=== PATIENT | female | born 1965 | race Caucasian/White ===

== ENCOUNTER → 2017-01-28 | Outpatient (CLI) | payer OTHER ==
[~2017-01-28] MED LIST: ESZO2TAB34 PO; LEVO50TA PO; MIRA25TA PO; MIRALAX PO; TESTOSTERONE PO; TYLENOL PO
== END | disposition home or self-care (01) ==
LOC: RAD 08:45
PROVIDERS: ATTEND Nurse Practitioner Family
DX: N28.1 Cyst of kidney, acquired (principal)
CPT/HCPCS: 76700

== ENCOUNTER → 2017-09-08 | Outpatient (CLI) | payer OTHER ==
[~2017-09-08] MED LIST changes: +ESZO2TAB22 PO; -ESZO2TAB34 PO
== END | disposition home or self-care (01) ==
LOC: CFH 09:46
PROVIDERS: ATTEND Radiology Radiation Oncology
DX: Z12.31 Encounter for screening mammogram for malignant neoplasm of breast (principal); Z85.3 Personal history of malignant neoplasm of breast
CPT/HCPCS: 77063; G0202

== ENCOUNTER 2017-11-28 05:39 | Day surgery (SDC) | payer OTHER ==
[~2017-11-28] VITALS: Ht 152.4 cm; Wt 53.0 kg
[2017-11-28] MEDS ORDERED: SODIUM BICARBONATE 1 MEQ/ML, 50ML VIAL ONE (06:02)
[2017-11-28] MEDS ORDERED: LIDOCAINE 1%, 20ML ONE ×2 (06:02→07:47)
[2017-11-28] MEDS ORDERED: BUPIVACAINE/PF 0.25% ONE ×2 (06:02→07:47)
[2017-11-28] MEDS ORDERED: EPINEPHRINE 1 MG/ML, 1ML ONE (06:02)
[2017-11-28 06:03] VITALS: BP 115/56
[2017-11-28] MEDS ORDERED: LACTATED RINGERS 1,000 ML IV SCH ×2 (06:06→08:02)
[2017-11-28] MEDS ORDERED: MIDAZOLAM 1 MG/ML, 2ML ONE (06:13)
[2017-11-28] MEDS ORDERED: FENTANYL PF 100 MCG/2ML ONE (06:14)
[2017-11-28] MEDS ORDERED: SODIUM CHLORIDE 0.9% PF 10ML ONE (06:20)
[2017-11-28] MEDS ORDERED: CEFAZOLIN 1,000 MG ONE ×2 (06:20)
[2017-11-28] MEDS ORDERED: ZOLP12.52 PO (06:26)
[2017-11-28] MEDS ORDERED: HYDROmorphone 1 MG/ML, 1ML IV PRN (07:00)
[2017-11-28] MEDS ORDERED: PROMETHAZINE 12.5 MG SUPP PR PRN (07:00)
[2017-11-28] MEDS ORDERED: ONDANSETRON 2MG/ML, 2ML IVPush PRN ×2 (07:00→08:30)
[2017-11-28] MEDS ORDERED: FENTANYL PF 100 MCG/2ML IV PRN (07:00)
[2017-11-28] MEDS ORDERED: PROPOFOL 10 MG/ML, 20ML ONE (07:11)
[2017-11-28] MEDS ORDERED: ONDANSETRON 2MG/ML, 2ML ONE (08:24)
[2017-11-28] MEDS ORDERED: IBUPROFEN 600 MG TABLET PO PRN (08:30)
== END 2017-11-28 10:25 ==
LOC: OUT 05:39
PROVIDERS: ATTEND Obstetrics & Gynecology Female Pelvic Medicine and Reconstructive Surgery
DX: N39.3 Stress incontinence (female) (male) (principal); N81.10 Cystocele, unspecified; Z98.890 Other specified postprocedural states; Z90.710 Acquired absence of both cervix and uterus
CPT/HCPCS: 57240; 64561; 64590; 72100; C1767; C1776; C1778; C1883; J0171; J0690; J2250; J2405; J2704; J3010; J3490; J7120

== ENCOUNTER 2017-12-05 05:28 | Day surgery (SDC) | payer OTHER ==
[~2017-12-05] VITALS: Ht 152.4 cm; Wt 56.0 kg
[~2017-12-05 05:28] MED LIST changes: +ZOLP12.52 PO
[2017-12-05] MEDS ORDERED: LACTATED RINGERS 1,000 ML IV SCH ×2 (06:06→08:34)
[2017-12-05 06:10] VITALS: BP 108/71
[2017-12-05] MEDS ORDERED: LIDOCAINE GEL 2%, 5ML ONE (06:46)
[2017-12-05] MEDS ORDERED: BACITRACIN 50,000 UNIT ONE (06:49)
[2017-12-05] MEDS ORDERED: EPINEPHRINE 1 MG/ML, 1ML ONE (06:49)
[2017-12-05] MEDS ORDERED: GABAPENTIN 300 MG CAPSULE PO ONE (06:49)
[2017-12-05] MEDS ORDERED: BUPIVACAINE/PF 0.5% ONE (06:49)
[2017-12-05] MEDS ORDERED: BUPIVACAINE/PF 0.25% ONE ×2 (06:50→07:54)
[2017-12-05] MEDS ORDERED: ESTROGENS CONJUGATED VAG CRM 0.625MG/1G, 30GM ONE (06:50)
[2017-12-05] MEDS ORDERED: FENTANYL PF 100 MCG/2ML ONE ×2 (06:50→08:53)
[2017-12-05] MEDS ORDERED: GENTAMICIN 80 MG/2 ML ONE (06:50)
[2017-12-05] MEDS ORDERED: MIDAZOLAM 1 MG/ML, 2ML ONE (06:50)
[2017-12-05] MEDS ORDERED: THROMBIN 5,000 UNIT VIAL TP ONE ×2 (06:51→08:09)
[2017-12-05] MEDS ORDERED: LIDOCAINE 1%, 20ML ONE (06:51)
[2017-12-05] MEDS ORDERED: FLUORESCEIN SODIUM 500 MG/5 ML ONE (06:51)
[2017-12-05] MEDS ORDERED: VANCOMYCIN 500 MG ONE (06:51)
[2017-12-05] MEDS ORDERED: PROPOFOL 50 ML ONE (06:54)
[2017-12-05] MEDS ORDERED: ACETAMINOPHEN 500 MG TABLET ONE (06:55)
[2017-12-05] MEDS ORDERED: SCOPOLAMINE PATCH, 1.5MG PATCH.TD72 TD ONE (06:55)
[2017-12-05] MEDS ORDERED: GABAPENTIN 300 MG CAPSULE ONE (06:55)
[2017-12-05] MEDS ORDERED: SCOPOLAMINE PATCH, 1.5MG PATCH.TD72 TD SCH (07:00)
[2017-12-05] MEDS ORDERED: ACETAMINOPHEN 500 MG TABLET PO ONE (07:00)
[2017-12-05] MEDS ORDERED: SUCCINYLCHOLINE 20 MG/ML, 10ML ONE (07:04)
[2017-12-05] MEDS ORDERED: ROCURONIUM 10 MG/ML,10ML ONE (07:04)
[2017-12-05] MEDS ORDERED: EPHEDRINE 50 MG/ML, 1ML ONE ×2 (07:49)
[2017-12-05] MEDS ORDERED: PROMETHAZINE 25 MG/ML, 1ML IV PRN ×2 (08:00→09:30)
[2017-12-05] MEDS ORDERED: DIAZEPAM 5 MG/ML, 2ML IVPush PRN (08:00)
[2017-12-05] MEDS ORDERED: PROMETHAZINE 12.5 MG SUPP PR PRN (08:00)
[2017-12-05] MEDS ORDERED: HYDROcodone/APAP 7.5-325MG/15ML UDC PO PRN (08:00)
[2017-12-05] MEDS ORDERED: HYDROmorphone 1 MG/ML, 1ML IV PRN (08:00)
[2017-12-05] MEDS ORDERED: MEPERIDINE/PF 25MG/0.5ML IVPush PRN (08:00)
[2017-12-05] MEDS ORDERED: METOCLOPRAMIDE 5 MG/ML, 2ML IV PRN (08:00)
[2017-12-05] MEDS ORDERED: LABETALOL 5MG/ML, 20ML IV PRN (08:00)
[2017-12-05] MEDS ORDERED: ONDANSETRON 2MG/ML, 2ML IVPush PRN ×2 (08:00→09:00)
[2017-12-05] MEDS ORDERED: FENTANYL PF 100 MCG/2ML IV PRN (08:00)
[2017-12-05] MEDS ORDERED: MIDAZOLAM 1 MG/ML, 2ML IV PRN (08:00)
[2017-12-05] MEDS ORDERED: ALBUTEROL/IPRATROPIUM 2.5MG/0.5MG, 3 ML NPPB PRN (08:00)
[2017-12-05] MEDS ORDERED: BUPIVACAINE/PF 0.25% INFIL ONE (08:08)
[2017-12-05] MEDS ORDERED: ONDANSETRON 2MG/ML, 2ML ONE (08:27)
[2017-12-05] MEDS ORDERED: DEXAMETHASONE 4 MG/ML, 1ML ONE (08:27)
[2017-12-05] MEDS ORDERED: PROPOFOL 10 MG/ML, 20ML ONE (08:27)
[2017-12-05] MEDS ORDERED: CEFAZOLIN 1,000 MG ONE (08:27)
[2017-12-05] MEDS ORDERED: KETOROLAC 30 MG/1 ML ONE (08:53)
[2017-12-05] MEDS ORDERED: ACETAMINOPHEN 325 MG TABLET ONE (08:53)
[2017-12-05] MEDS ORDERED: PROMETHAZINE 25 MG/ML, 1ML ONE (08:53)
[2017-12-05] MEDS ORDERED: OXYcodone 5 MG/5 ML ORAL.SOL UDC ONE (08:53)
[2017-12-05] MEDS ORDERED: ACETAMINOPHEN 650 MG/20.3 ML UDC ONE (08:53)
[2017-12-05] MEDS ORDERED: KETOROLAC 30 MG/1 ML IVPush STA (08:57)
[2017-12-05] MEDS ORDERED: PROMETHAZINE 25 MG SUPP PR ONE (09:00)
[2017-12-05] MEDS ORDERED: HYDROcodone/APAP 5/325 TABLET PO PRN (09:00)
[2017-12-05] MEDS ORDERED: IBUPROFEN 600 MG TABLET PO PRN (09:00)
[2017-12-05] MEDS ORDERED: HYDROcodone/APAP 7.5-325MG/15ML UDC ONE (09:11)
== END 2017-12-05 14:00 ==
LOC: OUT 05:28
PROVIDERS: ATTEND Obstetrics & Gynecology Female Pelvic Medicine and Reconstructive Surgery
DX: N81.11 Cystocele, midline (principal); R32 Unspecified urinary incontinence; R15.9 Full incontinence of feces; E03.9 Hypothyroidism, unspecified; K21.9 Gastro-esophageal reflux disease without esophagitis; Z90.710 Acquired absence of both cervix and uterus; Z98.890 Other specified postprocedural states; Z85.3 Personal history of malignant neoplasm of breast; Z88.5 Allergy status to narcotic agent; Z88.8 Allergy status to other drugs, medicaments and biological substances
CPT/HCPCS: 57240; 64590; C1767; C1787; J0171; J0330; J0690; J1100; J1580; J1885; J2250; J2405; J2550; J2704; J3010; J3490; J7120; J3370

== ENCOUNTER → 2018-01-14 | Outpatient (CLI) | payer OTHER | END | disposition home or self-care (01) | LOC: RAD 09:12 | PROVIDERS: ATTEND Family Medicine | DX: M54.2 Cervicalgia (principal) | CPT/HCPCS: 72050 ==

== ENCOUNTER 2018-02-21 23:53 | Emergency (ER) | payer OTHER ==
[~2018-02-21] VITALS: Ht 152.4 cm; Wt 52.5 kg
[2018-02-22] MEDS ORDERED: IBUPROFEN 200 MG TABLET ONE (00:24)
[2018-02-22] MEDS ORDERED: IBUPROFEN 200 MG TABLET PO ONE (00:30)
[2018-02-22 01:25] VITALS: BP 130/62
== END 2018-02-22 01:27 | disposition home or self-care (01) ==
LOC: ED 23:59
DX: S06.320A Contusion and laceration of left cerebrum without loss of consciousness, initial encounter (principal); S05.12XA Contusion of eyeball and orbital tissues, left eye, initial encounter; E03.9 Hypothyroidism, unspecified; W19.XXXA Unspecified fall, initial encounter; Y93.89 Activity, other specified; Y92.89 Other specified places as the place of occurrence of the external cause; Y99.8 Other external cause status
CPT/HCPCS: 70200; 99284

== ENCOUNTER → 2018-04-15 | Outpatient (CLI) | payer OTHER | LOC: CFH 08:50 | PROVIDERS: ATTEND Family Medicine | DX: Z02.9 Encounter for administrative examinations, unspecified (principal) ==

== ENCOUNTER → 2018-05-22 | Outpatient (CLI) | payer OTHER | END | disposition home or self-care (01) | LOC: CFH 08:35 | PROVIDERS: ATTEND Internal Medicine Cardiovascular Disease | DX: I25.10 Atherosclerotic heart disease of native coronary artery without angina pectoris (principal); Z82.49 Family history of ischemic heart disease and other diseases of the circulatory system | CPT/HCPCS: 75571 ==

== ENCOUNTER → 2018-10-30 | Outpatient (CLI) | payer OTHER | END | disposition home or self-care (01) | LOC: CFH 07:28 | PROVIDERS: ATTEND Surgery | DX: Z12.31 Encounter for screening mammogram for malignant neoplasm of breast (principal) | CPT/HCPCS: 77063; 77067 ==